=== PATIENT | female | born 1960 | race Caucasian/White ===

== ENCOUNTER 2017-01-29 15:16 | Emergency (ER) | payer BC ==
[~2017-01-29] VITALS: Ht 149.9 cm; Wt 79.5 kg
[~2017-01-29 15:16] MED LIST: DENIES HOME MEDS
[2017-01-29 15:28] VITALS: Ht 149.9 cm; Wt 79.5 kg
[2017-01-29 16:40] LABS: BASOPHIL # 0.1 10^3/ul (0.0-0.1); BASOPHILS % 0.6 % (0.0-2.0); EOSINOPHILS # 0.2 10^3/ul (0.0-0.5); EOSINOPHILS % 1.7 % (0.0-7.0); HEMOGLOBIN 13.4 g/dl (12.0-16.0); LYMPHOCYTES # 3.3 10^3/ul (0.8-2.9); LYMPHOCYTES % 34.5 % (15.0-51.0); MEAN CORPUSCULAR HEMOGLOBIN 29.1 pg (29.0-33.0); MEAN CORPUSCULAR HGB CONC 31.9 g/dl (32.0-37.0); MEAN CORPUSCULAR VOLUME 91.3 fl (82.0-101.0); MEAN PLATELET VOLUME 11.5 fl (7.4-10.4); MONOCYTE # 0.5 10^3/ul (0.3-0.9); MONOCYTES % 5.4 % (0.0-11.0); NEUTROPHIL # 5.5 10^3/ul (1.6-7.5); NEUTROPHILS % 57.5 % (39.0-77.0); PLATELET COUNT 219 10^3/UL (140-415); RED CELL DISTRIBUTION WIDTH 12.5 % (11.5-14.5); WHITE BLOOD COUNT 9.6 10^3/ul (4.8-10.8)
[2017-01-29 17:07] LABS: PARTIAL THROMBOPLASTIN TIME 28.6 Sec (25.0-35.0)
[2017-01-29 17:22] LABS: ALBUMIN 4.3 g/dl (3.3-4.9); ALBUMIN/GLOBULIN RATIO 1.07; BILIRUBIN,INDIRECT 0.1 mg/dl (0-1.1); BILIRUBIN,TOTAL 0.1 mg/dl (0.2-1.3); CALCIUM 9.6 mg/dl (8.4-10.2); CREATININE 0.56 mg/dl (0.44-1.00); POTASSIUM 4.1 mmol/L (3.5-5.1); TOTAL PROTEIN 8.3 g/dl (6.1-8.1)
[2017-01-29 17:23] LABS: INR 0.94; PROTIME 12.6 Sec (12.2-14.2)
[2017-01-29 17:50] VITALS: BP 124/82; PULSE 60; RESP 16
--- NOTE | 2017-01-29 18:42 | ERD ---
ER Documentation Chief Complaint Date/Time DATE: 01/29/17 TIME: 18:34 Chief Complaint p code green: epistaxis, shaky sensation x10 mins HPI 56-year-old female, [place] [employer] employee with no significant previous medical history brought to the ED as a code green. She expressed acute onset of epistaxis while working this afternoon. Feels anxious and shaky but otherwise asymptomatic. History of same, most recent episode approximately 5 months ago which resolved spontaneously. Denies chest pain, palpitations or shortness of breath. No headache, visual changes, focal weakness or numbness. Denies abdominal pain or back pain. No leg pain or swelling. No easy bruisability or history of bleeding dyscrasias or easy bruisability. No recent URIs or febrile illnesses. ROS All systems reviewed and are negative except as per history of present illness. Medications Home Meds Discontinued Reported Medications [Denies Home Meds] No Conflict Check 04/30/09 Allergies Allergies: Coded Allergies: No Known Allergy (Verified , 01/29/17) PMhx/Soc Reviewed in chart. As per HPI. History of Surgery: Yes (Cholecystectomy) Anesthesia Reaction: No Hx Neurological Disorder: No Hx Respiratory Disorders: No Hx Cardiac Disorders: No Hx Psychiatric Problems: No Hx Miscellaneous Medical Probl: No Hx Alcohol Use: No Hx Substance Use: No Hx Tobacco Use: No Smoking Status: Never smoker FmHx No bleeding disorders or cancer. Physical Exam Vitals Vital Signs Date Time Temp Pulse Resp B/P Pulse Ox O2 Delivery O2 Flow Rate FiO2 01/29/17 17:50 60 16 124/82 100 Room Air 01/29/17 15:28 98.1 77 24 154/63 99 Physical Exam Const: Alert, anxious, NAD Head: Atraumatic Eyes: Normal Conjunctiva ENT: Nose: No excoriations, bleeding or mass. Pharynx: clear, no blood. Neck: Full range of motion. Nontender Resp: Clear to auscultation bilaterally Cardio: Regular rate and rhythm, no murmurs Abd: Soft, non tender, non distended. Normal bowel sounds Skin: No petechiae or rashes Back: No midline or flank tenderness Ext: No cyanosis, or edema Neur: Awake and alert Psych: Cooperative, anxious Result Diagram: 01/29/17 1545 01/29/17 1545 Results 24 hrs Laboratory Tests Test 01/29/17 15:45 White Blood Count 9.610^3/ul Red Blood Count 4.6010^6/ul Hemoglobin 13.4g/dl Hematocrit 42.0% Mean Corpuscular Volume 91.3fl Mean Corpuscular Hemoglobin 29.1pg Mean Corpuscular Hemoglobin Concent 31.9g/dl Red Cell Distribution Width 12.5% Platelet Count 76475^3/UL Mean Platelet Volume 11.5fl Neutrophils % 57.5% Lymphocytes % 34.5% Monocytes % 5.4% Eosinophils % 1.7% Basophils % 0.6% Nucleated Red Blood Cells % 0.0/100WBC Neutrophils # 5.510^3/ul Lymphocytes # 3.310^3/ul Monocytes # 0.510^3/ul Eosinophils # 0.210^3/ul Basophils # 0.110^3/ul Nucleated Red Blood Cells # 0.010^3/ul Prothrombin Time 12.6Sec Prothrombin Time Ratio 1.0 INR International Normalized Ratio 0.94 Activated Partial Thromboplast Time 28.6Sec Sodium Level 142mmol/L Potassium Level 4.1mmol/L Chloride Level 106mmol/L Carbon Dioxide Level 26mmol/L Anion Gap 14 Blood Urea Nitrogen 20mg/dl Creatinine 0.56mg/dl Glucose Level 98mg/dl Calcium Level 9.6mg/dl Total Bilirubin 0.1mg/dl Direct Bilirubin 0.00mg/dl Indirect Bilirubin 0.1mg/dl Aspartate Amino Transf (AST/SGOT) 28IU/L Alanine Aminotransferase (ALT/SGPT) 48IU/L Alkaline Phosphatase 147IU/L Total Protein 8.3g/dl Albumin 4.3g/dl Globulin 4.00g/dl Albumin/Globulin Ratio 1.07 Procedures/MDM DOCUMENTS REVIEWED: ED nurse, no prior records REEXAMINATION/REEVALUATION: Time: 18:20. Doing well. Asymptomatic. BP:124/84. P: 73 [employer]-year-old female, [place] [employer] employee with no significant previous medical history brought to the ED as a code green for uncontrolled epistaxis. By the time she arrived in the ED bleeding had stopped. Initially significantly hypertensive but resolved without treatment. No anemia or coagulopathy. No intranasal lesions identified. Stable for discharge of precautionary instructions and outpatient follow-up as counseled. Patient's blood pressure was elevated (>120/80) but appears stable without evidence of hypertension emergency or urgency. The patient was counseled about the risks of hypertension and urged to pursue outpatient monitoring and therapy within a week with their primary care physician. Counseled patient and family regarding diagnostic workup, diagnosis and need for followup. Understands to return to ED if symptoms recur, worsen or any other concerns. Departure Diagnosis: Primary Impression: Epistaxis Additional Impression: Hypertension Hypertension type: unspecified Qualified Code: I10 - Hypertension, unspecified type Condition: Stable (Improved) TRAVIS HAMILTON MD Jan 29, 2017 18:42
== END 2017-01-29 19:08 | disposition home or self-care (01) ==
LOC: E/R 15:16
DX: R04.0 Epistaxis (principal); I10 Essential (primary) hypertension
CPT/HCPCS: 36415; 80053; 85025; 85610; 85730; 99283